=== PATIENT | female | born 1985 | race Caucasian/White ===

== ENCOUNTER 2017-12-07 12:50 | Emergency (ER) | payer OTHER, SELFPAY ==
[2017-12-07 12:51] VITALS: BP 132/89; PULSE 87; RESP 17; TEMP 36.5; O2SAT 98; BMI 32.0
--- NOTE | 2017-12-07 13:00 | CT_ITS ---
STUDY: CT BRAIN WITHOUT CONTRAST REASON FOR EXAM: Female, 32 years old. Status post fall. RADIATION DOSAGE (If Supplied By Facility): CTDIvol = ( 44.99 ) mGy, DLP = ( 728.62 ) mGycm TECHNIQUE: Transaxial CT imaging of the brain was performed without administration of intravenous contrast material. Individualized dose optimization techniques were used for this CT. COMPARISON: None. FINDINGS: Normal soft tissue structures. Normal calvarium. Normal size ventricles and extra-axial spaces for the patient's age. Normal white matter tracts of the cerebral hemispheres. Normal basal ganglia and thalami. Normal brainstem. Normal cerebellum. There is no intracranial hemorrhage. There are no findings of an acute ischemic infarction. Normal visualized paranasal sinuses. CT/Brain/Head without Contrast IMPRESSION: Normal unenhanced CT scan of the brain. Electronically Signed: Bertin Gotti MD at 13:46 EDT Tel , Service support ,
[2017-12-07] MEDS: HYDROcodone Bitartrate/Apap 5/325 Tablet PO (13:07)
[2017-12-07] MEDS: Ondansetron ODT 4 MG Tablet PO (13:07)
--- NOTE | 2017-12-07 13:09 | ED.VISSUMM ---
- ER Visit Summary Date of Service: 12/07/17 Chief Complaint: Head injury History of Present Illness: The patient is a 32 F is a healthy female with history of depression but on no other medications presents to the emergency department after head injury. Patient states that she was doing laundry yesterday. The floor was wet. She slipped and fell backwards. She struck her posterior head. She does not think that she lost consciousness but does have some amnesia to the event. Over the past 24 hours, her headache has been worsening. She states is worse when she leans forward. She has been nauseated without vomiting. There is no family history of hemophilia. She denies any visual change. She has not taken anything for the pain. Physical Examination: Vital signs reviewed General: Well-nourished, well-developed Head: Normocephalic, small contusion on the right posterior occiput without step-off or deformity Eyes: Pupils equal and reactive, extraocular muscles intact Neck, supple, no lymphadenopathy Heart: Regular rate and rhythm Respiratory: No distress, clear bilaterally Abdomen: Soft, nontender, nondistended, no peritoneal signs Back: Nontender Extremities: Nontender, no edema, no cords Skin: Normal color no rash Neuro: Alert and oriented, no focal or lateralizing deficits Test Results: [] Emergency Department Course and Treatment: The patient has had increasing headache with dizziness today. She was given oral antiemetics and analgesics with marked improvement of symptoms. I was concerned with the increasing headache and did obtain a head CT. This is unremarkable. There is no evidence of fracture or bleeding. The patient is resting comfortably. She has a steady gait. I do feel that her symptoms are more consistent with concussion. At this time, I do with the patient is safe for outpatient therapy. She will be discharged home. Treatment Plan: [] Disposition: Discharge Impression: 1. Concussion This note was generated with [employer] dictation software. It may contain incorrect words, spelling, and punctuation that were not noted in review of the chart prior to signing ED Disposition - Plan for ED Patient: Disposition: Home or Assisted Living Chief Complaint: Head Injury Instructions: ED Concussion Prescriptions: Ondansetron [Zofran Odt] 4 mg PO Q8H PRN PRN #10 tab PRN Reason: Nausea Naproxen [Naprosyn] 500 mg PO BID #20 tab Referrals: Maya Jo, DO [Primary Care Provider] -
[2017-12-07 14:19] VITALS: BP 127/91; PULSE 83; RESP 14; O2SAT 99
== END 2017-12-07 14:33 | disposition home or self-care (01) ==
PROVIDERS: Emergency Provider Emergency Medicine; Family Provider Internal Medicine; PCP Internal Medicine
DX: S06.0X0A Concussion without loss of consciousness, initial encounter (principal); S00.03XA Contusion of scalp, initial encounter; F32.9 Major depressive disorder, single episode, unspecified; R40.2410 Glasgow coma scale score 13-15, unspecified time; W01.0XXA Fall on same level from slipping, tripping and stumbling without subsequent striking against object, initial encounter; Y93.9 Activity, unspecified; Y92.9 Unspecified place or not applicable; Z79.899 Other long term (current) drug therapy
CPT/HCPCS: 70450; 99283

== ENCOUNTER 2019-08-14 18:21 | Emergency (ER) | payer OTHER, SELFPAY ==
[2019-08-14 18:22] VITALS: BP 105/79; PULSE 100; RESP 18; TEMP 36.3; O2SAT 99; BMI 29.0
--- NOTE | 2019-08-14 18:36 | ED.DCSUM_ITS ---
History of Present Illness Chief Complaint: Nausea/Vomiting Informant: Patient Onset: Days Context: Gradual Onset Timing: Intermittent Narrative: Patient is a 34-year-old female G4, P3 currently 9 weeks with last menstrual. June 15 presenting from her [employer] [employer] [facility] office for evaluation of dehydration vomiting. Patient states with prior pregnancies she has had hyperemesis gravidarum. She states for the past 2 weeks she has had worsening nausea but has been significantly worse for the past 5 days. She states she is throwing up multiple times a day now feels weak because she cannot keep anything down. She is also thrown up the Zofran prescribed by her [employer]. Patient denies any associated abdominal pain or vaginal bleeding. She denies any fever, cough, chills or vision changes. She denies any other complaints at this time. Past Medical History - Allergies and Home Meds Allergies/Adverse Reactions: Allergies No Known Allergies Allergy (Verified 12/07/17 12:53) Primary Care Physician: Aleksandra Caal CNM [Certified Nurse Email Producer] - Surgical History: no surgical history Smoking Status: Never smoker Review of Systems General: Denies: Chills, Fever, Sweats Eyes: Denies: Visual changes - bilaterally, Diplopia ENT: Denies: Rhinorrhea, Sore throat Cardiovascular: Denies: Chest pain, Palpitations Respiratory: Denies: Dyspnea, Cough, Dyspnea on exertion Gastrointestinal: Reports: Nausea, Vomiting. Denies: Abdominal pain, Diarrhea, Melena, Hematochezia Genitourinary: Denies: Dysuria, Hematuria, Frequency Musculoskeletal: Denies: Back pain, Extremity Pain Skin: Denies: Rash, Wounds Neurological: Denies: Headache, Weakness, Numbness Physical Exam Vital Signs/Narrative: Vital Signs Temp Pulse Resp BP Pulse Ox 08/14/19 18:22 97.3 F L 100 18 105/79 99 Inital Vital Signs reviewed: Yes General: Well nourished, Well developed, No Acute Distress Head: Normocephalic, Atraumatic Eyes: Perrl, EOMI ENT: Moist mucous membranes, No rhinorrhea Neck: Supple, Nontender Cardiovascular: Regular rate, Regular rhythm, No murmurs Respiratory: No distress, CTA bilaterally, Chest nontender Abdomen: Soft, Nontender, Nondistended, Normal bowel sounds. Negative for: Guarding Back: Nontender, Normal Inspection Extremities: Nontender, No edema Skin: Normal color, No rash Neurological: Alert, Oriented x3, Cranial nerves II-XII grossly intact, Normal Strength, Normal Sensation Psychological: Normal affect, Normal Mood Diagnostic/Tx/Re-eval Laboratory Data 08/14/19 08/14/19 08/14/19 18:40 18:40 18:40 WBC 9.9 RBC 4.99 Hgb 15.3 H Hct 44.1 MCV 88.4 MCH 30.7 MCHC 34.7 RDW Std Deviation 37.5 RDW Coeff of Xenia 11.8 Plt Count 226 MPV 8.9 Immature Gran % (Auto) 0.400 Neut % (Auto) 70.0 Lymph % (Auto) 18.9 L Kimble % (Auto) 7.2 Eos % (Auto) 3.2 Baso % (Auto) 0.3 Absolute Neuts (auto) 7.0 Absolute Lymphs (auto) 1.88 Nucleated RBC % 0 Sodium 139 Potassium 4.1 Chloride 106 Carbon Dioxide 27.0 Anion Gap 6 BUN 11 Creatinine 0.71 Estim Creat Clear Calc 94.59 Est GFR (MDRD) Af Amer 119 Est GFR (MDRD) Non-Af 99 BUN/Creatinine Ratio 15.5 Glucose 91 Calcium 9.4 Total Bilirubin 0.20 AST 16 ALT 24 Alkaline Phosphatase 77 Total Protein 7.7 Albumin 3.9 Globulin 3.8 Albumin/Globulin Ratio 1.0 Lipase 99 Serum , Qual POSITIVE H Urine Color Urine Clarity Urine pH Ur Specific [place] Urine Protein Urine Glucose (UA) Urine Ketones Urine Occult Blood Urine Nitrite Urine Bilirubin Urine Urobilinogen Ur Leukocyte Esterase Urine RBC Urine WBC Ur Squamous Epith Cells Amorphous Sediment Urine Bacteria Urine Mucus 08/14/19 19:10 WBC RBC Hgb Hct MCV MCH MCHC RDW Std Deviation RDW Coeff of X[place] Plt Count MPV Immature Gran % (Auto) Neut % (Auto) Lymph % (Auto) Kimble % (Auto) Eos % (Auto) Baso % (Auto) Absolute Neuts (auto) Absolute Lymphs (auto) Nucleated RBC % Sodium Potassium Chloride Carbon Dioxide Anion Gap BUN Creatinine Estim Creat Clear Calc Est GFR (MDRD) Af Amer Est GFR (MDRD) Non-Af BUN/Creatinine Ratio Glucose Calcium Total Bilirubin AST ALT Alkaline Phosphatase Total Protein Albumin Globulin Albumin/Globulin Ratio Lipase Serum , Qual Urine Color Yellow Urine Clarity Cloudy Urine pH 8.0 Ur Specific [place] 1.015 Urine Protein Negative Urine Glucose (UA) Normal Urine Ketones Negative Urine Occult Blood Negative Urine Nitrite Negative Urine Bilirubin Negative Urine Urobilinogen 1 H Ur Leukocyte Esterase Negative Urine RBC 0 SEEN Urine WBC 0 SEEN Ur Squamous Epith Cells 0 SEEN Amorphous Sediment 2+ Urine Bacteria 0 SEEN Urine Mucus 0 SEEN - Medical Decision Making Evaluated for nausea and vomiting associated with early . She has a history of significant morning sickness in her prior pregnancies. She does not appear clinically dehydrated and has normal vital signs. She is given IV fluids as well as IV Zofran initially. She does not have significant improvement with Zofran. She is then given IV Reglan. On reevaluation patient is now feeling better. She is able to eat some crackers in the ER. She is not having any associated tapan pain or vaginal bleeding I do not think ultrasound or further evaluation of the is indicated. Patient is instructed to follow-up with the [facility] at her [employer] office on Saturday. Patient discharged home with a prescription for Reglan. Patient is counseled on signs and symptoms requiring return to the emergency room. Patient verbalizes agreement and understand this plan. Patient discharged home in stable and improved condition. ED Disposition - Plan for ED Patient: Disposition: Home or Assisted Living Diagnosis: Vomiting during Instructions: Hyperemesis Gravidarum (Severe Morning Sickness) Prescriptions: Metoclopramide [Reglan] 10 mg PO 4X/DAY PRN #20 tab PRN Reason: Vomiting Prescription Printed Referrals: Aleksandra Caal CNM [Certified Nurse Email Producer] - Additional Instructions: Follow-up with galilto Crowell on Saturday. Call to make sure you are added onto the schedule. Return the emergency room with any worsening symptoms. Drink plenty of fluids. He might have to limit your diet to bland foods.
[2019-08-14 18:51] LABS: Absolute Lymphocyte Count 1.88 X10^3/uL (0.83-4.51); Basophil# 0.03 X10^3/uL; Basophil% 0.3 % (0-1); Eosinophil# 0.32 X10^3/uL; Eosinophils% 3.2 % (0-5); Hematocrit 44.1 % (37-47); Hemoglobin 15.3 g/dL (12.0-15.0); Lymphocyte # 1.88 X10^3/ul (4.0); Lymphocyte % 18.9 % (19-41); Mean Corp Hgb Conc 34.7 g/dL (32-36); Mean Corpuscular Hgb 30.7 pg (27.0-32.0); Mean Corpuscular Volume 88.4 fL (81-99); Mean Platelet Vol. 8.9 fl (6.2-12.0); Monocyte# 0.71 X10^3/uL; Monocyte% 7.2 % (0-10); NRBC Flagged by Analyzer 0 % (0-5); Neutrophil # 6.95 X10^3/uL (2.7-7.7); Platelet Count 226 K/mm3 (150-450); RBC Distribution Width CV 11.8 % (11.6-14.6); RBC Distribution Width SD 37.5 fl (35.1-43.9); Red Blood Count 4.99 M/mm3 (4.2-5.4); White Blood Count 9.9 K/mm3 (4.4-11.0)
[2019-08-14] MEDS: Ondansetron 4 MG/2 ML Vial IV (18:59)
[2019-08-14] MEDS: 0.9% Normal Saline 1,000 ML 1000 ML IV (18:59)
[2019-08-14 19:05] LABS: Internal QC Validated? YES +Cl - CLEAR BKGD; Pregnancy, Serum, hCG Quali. POSITIVE Negative
[2019-08-14 19:12] LABS: Bacteria 0 SEEN /hpf (None Seen); Mucous, Urine 0 SEEN /hpf (<or=2+); Red Blood Cells-Urine 0 SEEN /hpf (0-5); Squamous Epithelial Cells - UA 0 SEEN /hpf (5-10); White Blood Cells 0 SEEN /hpf (0-5)
[2019-08-14 19:14] LABS: Color, Urine Yellow (Yellow); Glucose, Dipstick Normal (Normal); Ketone-Dipstick Negative (Negative); Leukocyte Esterase-Dipstick Negative /ul (Negative); Nitrite-Dipstick Negative (Negative); Occult Blood-Urine Negative /ul (Negative); Protein-Dipstick Negative (Negative); Specific Gravity, Urine 1.015 (1.002-1.030); Urine Bilirubin Dipstick Negative (Negative); Urine Clarity Cloudy (Clear); Urine Urobilinogen 1 mg/dl (Normal)
[2019-08-14 19:14] LABS: AST(SGOT) 16 U/L (15-37); Alanine Aminotransfer ALT/SGPT 24 U/L (13-56); Albumin, Serum 3.9 g/dL (3.2-5.0); Alkaline Phosphatase 77 U/L (45-117); Anion Gap 6 (5-15); BUN 11 mg/dL (7-18); BUN/Creat Ratio 15.5 RATIO (10-20); Calcium,Total 9.4 mg/dL (8.5-10.1); Chloride 106 mmol/L (98-107); Creatinine, Serum 0.71 mg/dL (0.55-1.02); EST Glomerular Filtration Rate 99 mL/min (>60); Est Glom Filt Rate - Afr Amer 119 mL/min (>60); Estimated Creatinine Clearance 94.59 ml/min; Globulin 3.8 g/dL (2.2-4.2); Glucose 91 mg/dL (74-106); Lipase 99 U/L (73-393); Potassium 4.1 mmol/L (3.5-5.1); Protein, Total 7.7 g/dL (6.4-8.2); Sodium Level 139 mmol/L (136-145)
[2019-08-14 19:19] LABS: Amorphous Sediment 2+
[2019-08-14] MEDS: Metoclopramide 10 MG/2 ML Vial 5 MG IV (20:21)
[2019-08-14] MEDS: 0.9% Normal Saline 1,000 ML 999 ML IV (20:21)
[2019-08-14 23:04] VITALS: PULSE 81; RESP 14; O2SAT 98
== END 2019-08-14 23:04 | disposition home or self-care (01) ==
PROVIDERS: Emergency Provider Emergency Medicine; Family Provider Internal Medicine; PCP Internal Medicine
DX: O21.0 Mild hyperemesis gravidarum (principal); Z3A.09 9 weeks gestation of pregnancy
CPT/HCPCS: 80053; 81001; 83690; 84703; 85025; 96361; 96374; 96375; 99284; J7030; A4216; J2405

== ENCOUNTER → 2019-08-25 10:00 | Outpatient (CLI) | payer SELFPAY ==
[2019-08-14 18:22] VITALS: BMI 29.0
[2019-08-26 12:46] LABS: Chlamydia Trachomatis by PCR Negative (Negative); Neisserai gonorrhoeae by PCR Negative (Negative); Probe Check PASS; Sample Adequacy Control PASS; Specimen Processing Control PASS
[2019-08-28 15:16] LABS: HPV Reflexed? NOT INDICATED
== END ==
PROVIDERS: Visit Provider Obstetrics & Gynecology
DX: Z12.4 Encounter for screening for malignant neoplasm of cervix (principal); Z11.3 Encounter for screening for infections with a predominantly sexual mode of transmission
CPT/HCPCS: 87491; 87591; 88175; G0145

== ENCOUNTER → 2020-02-23 | Outpatient (CLI) | payer OTHER, SELFPAY | END | disposition home or self-care (01) | LOC: LABSPEC 02-24 08:56 | PROVIDERS: Visit Provider Obstetrics & Gynecology | DX: Z36.85 Encounter for antenatal screening for Streptococcus B (principal) | CPT/HCPCS: 87081 ==

== ENCOUNTER → 2020-03-16 18:11 | Outpatient (CLI) | payer SELFPAY, OTHER | PROVIDERS: PCP Family Medicine; Visit Provider Obstetrics & Gynecology | DX: Z11.59 Encounter for screening for other viral diseases (principal) | CPT/HCPCS: 87635; U0003 ==

== ENCOUNTER 2020-03-17 23:45 | Outpatient (CLI) | payer SELFPAY ==
[2020-03-17 23:56] VITALS: BMI 33.5
[2020-03-18] VITALS: BP 120/79; PULSE 76; TEMP 36.7; O2SAT 96
[2020-03-18 00:36] VITALS: BP 116/76; PULSE 78; TEMP 36.4
[2020-03-18 01:24] VITALS: BP 111/70; PULSE 67; TEMP 36.2; O2SAT 99
[2020-03-18 02:45] VITALS: TEMP 36.6; O2SAT 97
[2020-03-18 02:46] VITALS: BP 128/77; PULSE 68
[2020-03-18 03:40] VITALS: BP 117/76; PULSE 71; TEMP 36.3; O2SAT 96
--- NOTE | 2020-03-18 10:52 | OB.TRI.NOTE ---
- Problem List (1) 39 weeks gestation of Status: Acute History of Present Illness Reason For Visit: R/O LABOR Allergies No Known Allergies Allergy (Verified 03/18/20 00:08) Physical Exam Vitals: Vital Signs Temp Pulse BP Pulse Ox 97.4 F L 71 117/76 96 03/18/20 03:40 03/18/20 03:40 03/18/20 03:40 03/18/20 03:40
--- NOTE | 2020-03-18 11:46 | OB.TRI.HP_ITS ---
- Problem List (1) 39 weeks gestation of Status: Acute History of Present Illness Date of Service: 03/18/20 Was patient seen by the physician?: No Reason For Visit: R/O LABOR Date of Service: 03/18/20 Final POLLY: 03/20/20 Final POLLY Source: US <20 weeks Gestational age: 39 Weeks and 5 Days History of Present Illness: States regular contractions started this evening around 2100. Allergies No Known Allergies Allergy (Verified 03/18/20 00:08) Review of Systems Constitutional: Denies: Chills, Fever, Weight Change HEENT: Denies: Head Aches, Sinus Congestion, Sinus Drainage Cardiovascular: Denies: Chest Pain, Palpitations Respiratory: Denies: Cough, Shortness of breath at rest, Sputum production Gastrointestinal: Denies: Abdominal Pain, Nausea, Vomiting Genitourinary: Denies: Dysuria Musculoskeletal: Denies: Joint Pain, Joint Tenderness Skin: Denies: Rash, Wounds Neurological: Denies: Numbness, Tingling, Focal weakness Psychiatric: Denies: Anxiety, Depression, Homicidal Ideations, Suicidal Ideations Hematologic/ Lymphatic: Denies: Easy Bruising, Easy Bleeding Physical Exam Vitals: Vital Signs Temp Pulse BP Pulse Ox 97.4 F L 71 117/76 96 03/18/20 03:40 03/18/20 03:40 03/18/20 03:40 03/18/20 03:40 General: Alert, Oriented x3, No apparent distress HEENT: Atraumatic, Normocephalic. 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 Negative for: Vulvar lesions Estimated gestational size: Appropriate for gestational size Presentation: Cephalic Cervix Dilation (cm): 2.5 Station: -3 Effacement (%): 50 NST - FHR Rate Baby A Baseline: 150 Variability:: Moderate Accelerations:: 15 x 15 Decelerations:: None NST Reactive:: Yes FHR Category:: Category I Uterine Activity:: 10-15m Impression/Plan A/P: at 39 weeks here to rule out labor On arrival to unit SVE 2.5/50/-3 Observed for 4 hours NST Category I UC Q10-15m SVE after 4 hours unchanged at 2.5/50/-3 RN reviewed NST with Dr. Hinkle and anita to discharge home
== END 2020-03-18 04:25 | disposition home or self-care (01) ==
LOC: WPOUT 23:49 → WP 23:49
PROVIDERS: PCP Family Medicine; Referring Provider Obstetrics & Gynecology; Visit Provider Obstetrics & Gynecology
DX: O62.9 Abnormality of forces of labor, unspecified (principal); Z3A.39 39 weeks gestation of pregnancy
CPT/HCPCS: 59025; 59050; 99218; G0378

== ENCOUNTER 2020-03-19 04:23 | Inpatient (IN) | payer SELFPAY, OTHER ==
[2020-03-19] VITALS (44 sets, daily range): BP systolic 79–126; BP diastolic 42–83; PULSE 51–153; RESP 14; TEMP 35.7–36.7; O2SAT 88–99; BMI 33.5
[2020-03-19] MEDS: Lactated Ringers 500 ML 999 ML IV ×3 (04:50→07:28)
[2020-03-19 04:51] LABS: Hemoglobin 12.3 g/dL (12.0-15.0); Mean Corp Hgb Conc 33.2 g/dL (32-36); Mean Corpuscular Hgb 29.1 pg (27.0-32.0); Mean Corpuscular Volume 87.5 fL (81-99); Mean Platelet Vol. 8.9 fl (6.2-12.0); Platelet Count 166 K/mm3 (150-450); RBC Distribution Width CV 13.2 % (11.6-14.6); RBC Distribution Width SD 41.1 fl (35.1-43.9); Red Blood Count 4.23 M/mm3 (4.2-5.4); White Blood Count 10.9 K/mm3 (4.4-11.0)
[2020-03-19] MEDS: Lactated Ringers 1,000 ML 50 ML IV (05:00)
[2020-03-19 05:07] LABS: Absolute Lymphocyte Count 1.13 X10^3/uL (0.83-4.51); Absolute Neutrophil Count 8.5 X10^3/uL (2.0-7.7); Basophil# 0.02 X10^3/uL; Basophil% 0.2 % (0-1); Eosinophil# 0.13 X10^3/uL; Eosinophils% 1.2 % (0-5); Lymphocyte # 1.13 X10^3/ul (4.0); Lymphocyte % 10.7 % (19-41); Monocyte# 0.71 X10^3/uL; Monocyte% 6.7 % (0-10); NRBC Flagged by Analyzer 0 % (0-5); Neutrophil # 8.48 X10^3/uL (2.7-7.7); Neutrophil % 80.6 % (47-70)
[2020-03-19] MEDS: fentaNYL-bupivacaine (epidural) 100 ML BAG EPIDURAL ×2 (05:16→10:07)
[2020-03-19] MEDS: Ondansetron 4 MG/2 ML Vial IV (05:50)
--- NOTE | 2020-03-19 06:41 | PCM.HP.OB ---
- Problem List (1) 39 weeks gestation of Status: Acute History Date of Admission: 03/19/20 Final POLLY: 03/20/20 Final POLLY Source: US <20 weeks Gestational age: 39 Weeks and 6 Days History of this : This is a 34 year-old, G [4], P [3], at 39 weeks gestational age. Allergies No Known Allergies Allergy (Verified 03/19/20 06:13) Home Medications: Home Medications Fluoxetine HCl 40 mg PO DAILY 08/14/19 Smoking Status: Never smoker Alcohol: None Substance Use Type: Sleep Aides Number of Fetus(es): 1 NST - FHR Rate Baby A Baseline: 140 Variability:: Moderate Accelerations:: 15 x 15 Decelerations:: None NST Reactive:: Yes FHR Category:: Category I Uterine Activity:: Q5m History Past Pregnancies: PRIOR DELIVERY HISTORY DEL DATE GEST LAB WT LB WT OZ TYPE ANES LABOR TX Jul 25 41 20 8 5 Vag Epidural No 17 Aug 29 40 8 7 7 Vag Epidural No 30 Jan 31 40 8 8 5 Vag Epidural No Labs: Mom's Labs & Results 03/19/20 03/19/20 04:49 04:49 WBC 10.9 RBC 4.23 Hgb 12.3 Hct 37.0 MCV 87.5 MCH 29.1 MCHC 33.2 RDW Std Deviation 41.1 RDW Coeff of Xenia 13.2 Plt Count 166 MPV 8.9 Immature Gran % (Auto) 0.600 Neut % (Auto) 80.6 H Lymph % (Auto) 10.7 L [place] % (Auto) 6.7 Eos % (Auto) 1.2 Baso % (Auto) 0.2 Absolute Neuts (auto) 8.5 H Absolute Lymphs (auto) 1.13 Nucleated RBC % 0 Blood Type A NEGATIVE Antibody Screen NEGATIVE Course Did the patient receive Yes care? Labs Blood Type: A RH: NEGATIVE RPR/VDRL/Syphilis Nonreactive Rubella status Immune HbSAg Negative Date Done: 09/01/19 Chlamydia Negative Gonorrhea Negative HIV/AIDS Non-Reactive Group B Strep: Negative Current Obstetrical History Gestational Diabetes No Incompetent Cervix No Infertility No IUGR No Macrosomia No Hypertension/Pre-eclampsia No Placenta Previa/Abruption Yes: resolved at 32 wks PTL/PROM No Uterine anomaly No Oligohydramnios No Polyhydramnios No Multiple gestation No Past Medical History Asthma No Diabetes No Hypertension No Heart disease No Mitral valve prolapse No Neurologic/Seizure disorder/ No Migraines Kidney disease No Liver disease No Varicosities No Clotting disorders/Hx of DVT No Thyroid Dysfunction No Other medical diseases No Psychiatric disorders Yes: anxiety, depression Major trauma No Abnormal PAP smear No Sleep apnea No Mammogram in the last 2 years No Social History Marital Status: Alleged father Temo Hx Smoking No Smoking Status Never smoker Substance Use Type Sleep Aides How long have you used unisom during substances (years)? What date/time did you last 03/16/20 use any of the above? Have you had any previous no inpatient or outpatient treatment Expected Infant Delivery Method: Spontaneous Vaginal Number of Visits: 12 Review of Systems Constitutional: Denies: Chills, Fever, Weight Change HEENT: Denies: Head Aches, Sinus Congestion, Sinus Drainage Cardiovascular: Denies: Chest Pain, Palpitations Respiratory: Denies: Cough, Shortness of breath at rest, Sputum production Gastrointestinal: Denies: Abdominal Pain, Nausea, Vomiting Genitourinary: Denies: Dysuria Musculoskeletal: Denies: Joint Pain, Joint Tenderness Skin: Denies: Rash, Wounds Neurological: Denies: Numbness, Tingling, Focal weakness Psychiatric: Denies: Anxiety, Depression, Homicidal Ideations, Suicidal Ideations Hematologic/ Lymphatic: Denies: Easy Bruising, Easy Bleeding Physical Exam Vitals: Vital Signs Temp Pulse BP Pulse Ox 97.3 F L 72 103/66 97 03/19/20 11:00 03/19/20 11:17 03/19/20 11:01 03/19/20 11:17 General: Alert, Oriented x3, No apparent distress HEENT: Atraumatic, Normocephalic. 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 Negative for: Vulvar lesions Estimated gestational size: Appropriate for gestational size Presentation: Cephalic Cervix Dilation (cm): 5 Station: -2 Effacement (%): 75 Assessment/Plan All Active Problems 39 weeks gestation of (Acute) A/P: This is a 34 year-old, G [4], P [3], at 39 weeks gestational age. SVE /-2 with bulging bag of amniotic fluid UC Q5m NST Category I Plans epidural for pain management Admit in active labor
--- NOTE | 2020-03-19 10:40 | PN.OBGYN_ITS ---
Subjective: Feeling no pain with epidural. Okay with having water broke. Objective: VSS. UC Q1.5-3m. Epidural in place. SVE /-1 with bulging bag of amniotic fluid - Physical Exam Vitals/I&O's: Vital Signs Temp Pulse BP Pulse Ox 97.3 F L 72 103/66 97 03/19/20 11:00 03/19/20 11:17 03/19/20 11:01 03/19/20 11:17 Weight: 85.729 kg Body Mass Index (BMI) 33.5 Intake and Output for Last 24 Hours 03/17/20 03/18/20 03/19/20 23:59 23:59 23:59 Intake Total 2737.49 / 2737.49 Output Total 425 / 425 Balance 2312.49 / 2312.49 General: Alert, Oriented x3, Cooperative HEENT: Atraumatic, PERRLA, EOMI, Normocephalic Neck: Supple, No JVD, Negative Carotid Bruits Lungs: Clear to auscultation, Normal air movement Cardiovascular: Regular rate, No murmurs Abdomen: Bowel Sounds Present, Soft, Non Tender Extremities: No edema, Capillary Refill Less than 3 Seconds Skin: No rashes, No breakdown Musculoskeletal: No Tenderness to Palpation of Joints or Extremities Neurological: Cranial nerves II-XII grossly intact Psych/Mental Status: Normal Affect, Appropriate Laboratory Results 03/19/20 04:49: WBC 10.9, RBC 4.23, Hgb 12.3, Hct 37.0, MCV 87.5, MCH 29.1, MCHC 33.2, RDW Std Deviation 41.1, RDW Coeff of Xenia 13.2, Plt Count 166, MPV 8.9, Immature Gran % (Auto) 0.600, Neut % (Auto) 80.6 H, Lymph % (Auto) 10.7 L, [place] % (Auto) 6.7, Eos % (Auto) 1.2, Baso % (Auto) 0.2, Absolute Neuts (auto) 8.5 H, Absolute Lymphs (auto) 1.13, Nucleated RBC % 0 03/19/20 04:49: Blood Type A NEGATIVE, Antibody Screen NEGATIVE Current Medications Acetaminophen (Tylenol) 325 - 650 mg PO Q4H PRN PRN PRN Reason: Pain Score 1-3/10 Al Hydroxide/Mg Hydroxide (Mylanta Ii) 15 - 30 ml PO Q4H PRN PRN PRN Reason: INDIGESTION Citric Acid/Sodium Citrate (Bicitra) 30 ml PO X1 PRN PRN Reason: Section Ephedrine Sulfate () 10 mg IV Q10M PRN PRN Reason: hypotension Ephedrine Sulfate () 10 mg IM Q30M PRN PRN Reason: hypotension Fentanyl Citrate (Sublimaze (100mcg Ampule)) 25 - 50 mcg IV Q2H PRN PRN PRN Reason: Pain Score 4-10/10 Fentanyl/Bupivacaine/Sodium Chlor () 0 ml EPIDURAL UD JOSE F; Protocol Last Admin: 03/19/20 10:07 Dose: 100 ml Documented by: Lactated Ringer's () 500 mls @ 999 mls/hr IV .Q31M PRN PRN Reason: Epidural Last Infusion: 03/19/20 05:50 Dose: Infused Documented by: Lactated Ringer's () 500 mls @ 999 mls/hr IV .Q31M PRN PRN Reason: Corrective Measures Last Infusion: 03/19/20 08:00 Dose: Infused Documented by: Lactated Ringer's () 1,000 mls @ 50 mls/hr IV .Q20H JOSE F Last Admin: 03/19/20 11:04 Dose: 200 mls/hr Documented by: Naloxone HCl 4 mg/ Dextrose 504 mls @ 0 mls/hr IV .Q0M PRN; Protocol PRN Reason: To maintain Resp. rate >10 Nalbuphine HCl (Nubain) 5 mg IV Q3H PRN PRN PRN Reason: ITCHING Naloxone HCl (Narcan) 0.02 mg IV Q1M PRN PRN Reason: RR< 10 AND PT UNRESPONSIVE Ondansetron HCl (Zofran) 4 mg IV Q4H PRN PRN PRN Reason: NAUSEA Last Admin: 03/19/20 05:50 Dose: 4 mg Documented by: Prochlorperazine Edisylate (Compazine Iv) 10 mg IV Q6H PRN PRN PRN Reason: NAUSEA Sodium Chloride () 10 - 40 ml IV X1 PRN PRN Reason: SALINE FLUSH Medical Necessity - Tobacco Use Smoking Status: Never smoker Assessment/Plan All Active Problems 39 weeks gestation of (Acute) A/P: here in active labor SVE /-1 AROM with moderate meconium stained fluid Epidural in place for pain management, working well Expect Dr. Hinkle, attending MD updated on POC
[2020-03-19] MEDS: Lactated Ringers 1,000 ML 200 ML IV (11:04)
[2020-03-19] MEDS: Oxytocin 30 units/NS 500 ml 30 UNITS/500 ML IV.SOLN 334 UNITS IV (13:35)
--- NOTE | 2020-03-19 13:51 | PCM.OPRPT ---
Vaginal Delivery Maternal Presentation: Active Labor Amniotic Membrane Rupture Type: Artificial Amniotic Fluid Description: Thick meconium Final POLLY: 03/20/20 Final POLLY Source: US <20 weeks Gestational age: 39 Weeks and 6 Days doctor who attended delivery (if requested by OB): Abby Mcelroy - Thick Mec Fluid Date of Procedure: 03/19/20 Pre-Operative Diagnosis: IUP Post-Operative Diagnosis: IUP Surgery/ Procedure Performed: Spontaneous Vaginal Delivery Type of Anesthesia: Epidural Description of Procedure: Spontaneous vaginal delivery of a viable female with Apgars of 7/8 from an occiput anterior presentation with thick meconium stained fluid and normal three-vessel meconium stained placenta. No episiotomy; first-degree midline laceration repaired with 3-0 Rapide suture under epidural. Sponges okay. Delivery physician: Anthony Hinkle MD. Placental Delivery Description: Spontaneous Placenta Disposition: [facility] Cord Vessel Description: 3 Vessels Cord Entanglement: None Estimated Blood Loss: 250 cc A gender: Female (1 minute): 8 (5 minute): 9 Episiotomy Description: None Laceration: Midline, 1st degree Medications given after delivery: IV Pitocin Complications: None
--- NOTE | 2020-03-19 13:56 | DCINST_ITS ---
<Anthony Hinkle - Last Filed: 03/19/20 13:56> Discharge Diet: No Restrictions Discharge Activity: May Shower, May Take a Tub Bath May resume sexual activity in: 4-6 weeks Additional Activity Instructions:: Nothing in the vagina for 4-6 weeks. You may return to work/school in 6 weeks. Call your doctor if you observe: Fever of 101 or Higher, Inability to have a bowel movement, Using more than one pad per hour Additional Instructions: If you experience any of the following, contact your healthcare provider. * Bleeding that soaks a pad every hour for 2 hours * Fever 100.4 or higher * Unrelieved incision or abdominal pain * Swelling, redness, discharge or bleeding from your incision or episiotomy site * Your incision begins to separate * Problems urinating (including inability to urinate or burning while urinating). * Visual changes * Severe headache * Flu-like symptoms * Pain or redness in one of both of your breasts * Pain, warmth, tenderness or swelling in your legs, especially the calf area * Frequent nausea and vomiting * Symptoms of depression or anxiety If you experience any of the following, call 911 or go to the nearest Emergency Room. * Chest pain * Problems breathing * Seizure activity * Partial or complete paralysis of a body part, slurred speech, weakness or drooping of the face, or a sudden inability to walk or hold your balance Allergies/Adverse Reactions: Allergies No Known Allergies Allergy (Verified 03/19/20 06:13) Medications to take at Discharge Fluoxetine HCl 40 mg PO DAILY 08/14/19 Please Follow Up With: Anthony Hinkle MD - [phone] When: Call to make an appointment with your doctor in 6 weeks. Primary Care Physician: Jaylan Hernadez MD [Primary Care Provider] - Test Results: Test results from this visit will be discussed in further detail at your follow-up appointment, if applicable. <Jeannine Sofia - Last Filed: 03/21/20 08:09> Additional Instructions: If you experience any of the following, contact your healthcare provider. * Bleeding that soaks a pad every hour for 2 hours * Fever 100.4 or higher * Unrelieved incision or abdominal pain * Swelling, redness, discharge or bleeding from your incision or episiotomy site * Your incision begins to separate * Problems urinating (including inability to urinate or burning while urinating). * Visual changes * Severe headache * Flu-like symptoms * Pain or redness in one of both of your breasts * Pain, warmth, tenderness or swelling in your legs, especially the calf area * Frequent nausea and vomiting * Symptoms of depression or anxiety If you experience any of the following, call 911 or go to the nearest Emergency Room. * Chest pain * Problems breathing * Seizure activity * Partial or complete paralysis of a body part, slurred speech, weakness or drooping of the face, or a sudden inability to walk or hold your balance Test Results: Test results from this visit will be discussed in further detail at your follow- up appointment, if applicable.
[2020-03-19] MEDS: Acetaminophen 500 MG Tablet 1000 MG PO (18:07)
--- NOTE | 2020-03-19 20:30 | CASEMGMT ---
Social Work Brief Assessment - Labor and Delivery Unit Refer documentation below for further details. Date of Referral/Notification: 03/19/2020 Time of Referral: 16:35 Referred By: Nursing Reason for Referral: History of depression and anxiety. MOB treated with medication Date of Intervention: 03/19/2020 Time of Intervention: 20:25 Informant: Medical record and mother of baby (MOB) Assessment: Met with MOB and FOB in room. Upon entering room, MOB sitting up in bed holding baby. Introduced role and reason for referral. MOB reports feeling tired as she just delivered baby this afternoon. MOB discussed history of mental health and states followed with counseling in the past. MOB states depression and anxiety is well managed with medication. MOB denies any needs for referrals. MOB states good support from family. Discussed signs/symptoms of Post- Depression and provided educational packet. MOB and FOB deny any questions or concerns. Plan: MOB reports wishes to stay additional day. Anticipate discharge home, Saturday. Resources provided. No further needs requested or indicated. -Rosangela Epps, ACADEMIC ASSISTANT, SPINNER [employer]INUOUS
[2020-03-20] VITALS (9 sets, daily range): BP systolic 109–117; BP diastolic 59–77; PULSE 72–87; RESP 16–18; TEMP 36.4–37.1
[2020-03-20] MEDS: Acetaminophen 500 MG Tablet 1000 MG PO ×2 (06:22→17:26)
[2020-03-20] MEDS: Ibuprofen 600 MG Tablet PO (12:31)
[2020-03-20] MEDS: Senna/Docusate Sodium 1 Tablet PO (12:31)
[2020-03-20] MEDS: FLUoxetine 20 MG Capsule 40 MG PO (12:31)
--- NOTE | 2020-03-20 12:37 | PCM.PN.OB ---
Subjective: Patient without complaints. Bottlefeeding. Wants to wait until tomorrow to go home. - Physical Exam Vitals/I&O's: Vital Signs Temp Pulse Resp BP Pulse Ox 98.3 F 87 18 117/77 97 03/20/20 09:05 03/20/20 09:05 03/20/20 09:05 03/20/20 09:05 03/19/20 15:28 Oxygen Delivery Method Room Air Weight: 189 lb Body Mass Index (BMI) 33.5 Intake and Output for Last 24 Hours 03/18/20 03/19/20 03/20/20 23:59 23:59 23:59 Intake Total 3740.82 / 3740.82 Output Total 1525 / 1525 Balance 2215.82 / 2215.82 Current Medications Acetaminophen (Tylenol) 1,000 mg PO Q8H PRN PRN PRN Reason: Pain Score 1-3/10 Last Admin: 03/20/20 06:22 Dose: 1,000 mg Documented by: Bisacodyl (Dulcolax) 10 mg RECTAL UD PRN PRN Reason: If no BM Dibucaine (Dibucaine) 1 applic TOPICAL TID PRN PRN; Protocol PRN Reason: Discomfort Fluoxetine HCl (Prozac) 40 mg PO DAILY JOSE F Last Admin: 03/20/20 12:31 Dose: 40 mg Documented by: Hydrocortisone (Hytone) 1 applic TOPICAL TID PRN PRN; Protocol PRN Reason: Discomfort Ibuprofen (Motrin) 600 mg PO Q6H PRN PRN PRN Reason: Pain Score 1-3/10 Last Admin: 03/20/20 12:31 Dose: 600 mg Documented by: Methylergonovine Maleate (Methergine) 0.2 mg IM X1 PRN PRN Reason: Excess bleeding/uterine atony Ondansetron HCl (Zofran) 4 mg IV Q4H PRN PRN PRN Reason: Nausea Oxycodone HCl (Oxyir) 5 - 10 mg PO Q4H PRN PRN PRN Reason: Pain Score 4-10/10 Senna/Docusate Sodium (Senokot-S, Cornelia-Colace) 1 - 2 tablet PO DAILY PRN PRN PRN Reason: Constipation Last Admin: 03/20/20 12:31 Dose: 2 tablet Documented by: Simethicone (Mylicon) 80 mg PO PCHS PRN PRN Reason: Indigestion/Stomach pain Sodium Chloride () 5 - 15 ml IV UD PRN PRN Reason: SALINE FLUSH Zolpidem Tartrate (Ambien (Generic)) 5 mg PO QHS PRN PRN PRN Reason: Insomnia Medical Necessity - Tobacco Use Smoking Status: Never smoker Assessment/Plan All Active Problems 39 weeks gestation of (Acute) Doing well day #1 status post routine spontaneous vaginal delivery. Continuing present care.
[2020-03-21 01:33] VITALS: BP 117/75; PULSE 71
[2020-03-21 01:34] VITALS: BP 117/75; PULSE 71; RESP 14; TEMP 36.7
[2020-03-21] MEDS: Ibuprofen 600 MG Tablet PO (01:36)
[2020-03-21 07:33] VITALS: BP 111/70; PULSE 77; RESP 16; TEMP 36.6
--- NOTE | 2020-03-21 08:09 | PCM.PN.OB ---
Subjective: Feeling well. Denies pain or heavy bleeding. Ambulating in the room, tolerating a regular diet, urinating well, and passing flatus. Bottle feeding and would like to discharge home today. Objective: VSS. Fundus is firm, midline, u/2. Lochia rubra moderate. - Physical Exam Vitals/I&O's: Vital Signs Temp Pulse Resp BP Pulse Ox 97.8 F 77 16 111/70 97 03/21/20 07:33 03/21/20 07:33 03/21/20 07:33 03/21/20 07:33 03/19/20 15:28 Oxygen Delivery Method Room Air Weight: 85.729 kg Body Mass Index (BMI) 33.5 Intake and Output for Last 24 Hours 03/19/20 03/20/20 03/21/20 23:59 23:59 23:59 Intake Total 3740.82 / 3740.82 Output Total 1525 / 1525 Balance 2215.82 / 2215.82 General: Alert, Oriented x3, Cooperative HEENT: Atraumatic, PERRLA, EOMI, Normocephalic Neck: Supple, No JVD, Negative Carotid Bruits Lungs: Clear to auscultation, Normal air movement Cardiovascular: Regular rate, No murmurs Abdomen: Bowel Sounds Present, Soft, Non Tender Extremities: No edema, Capillary Refill Less than 3 Seconds Skin: No rashes, No breakdown Musculoskeletal: No Tenderness to Palpation of Joints or Extremities Neurological: Cranial nerves II-XII grossly intact Psych/Mental Status: Normal Affect, Appropriate Current Medications Acetaminophen (Tylenol) 1,000 mg PO Q8H PRN PRN PRN Reason: Pain Score 1-3/10 Last Admin: 03/20/20 17:26 Dose: 1,000 mg Documented by: Bisacodyl (Dulcolax) 10 mg RECTAL UD PRN PRN Reason: If no BM Dibucaine (Dibucaine) 1 applic TOPICAL TID PRN PRN; Protocol PRN Reason: Discomfort Fluoxetine HCl (Prozac) 40 mg PO DAILY JOSE F Last Admin: 03/20/20 12:31 Dose: 40 mg Documented by: Hydrocortisone (Hytone) 1 applic TOPICAL TID PRN PRN; Protocol PRN Reason: Discomfort Ibuprofen (Motrin) 600 mg PO Q6H PRN PRN PRN Reason: Pain Score 1-3/10 Last Admin: 03/21/20 01:36 Dose: 600 mg Documented by: Methylergonovine Maleate (Methergine) 0.2 mg IM X1 PRN PRN Reason: Excess bleeding/uterine atony Ondansetron HCl (Zofran) 4 mg IV Q4H PRN PRN PRN Reason: Nausea Oxycodone HCl (Oxyir) 5 - 10 mg PO Q4H PRN PRN PRN Reason: Pain Score 4-10/10 Senna/Docusate Sodium (Senokot-S, Cornelia-Colace) 1 - 2 tablet PO DAILY PRN PRN PRN Reason: Constipation Last Admin: 03/20/20 12:31 Dose: 2 tablet Documented by: Simethicone (Mylicon) 80 mg PO PCHS PRN PRN Reason: Indigestion/Stomach pain Sodium Chloride () 5 - 15 ml IV UD PRN PRN Reason: SALINE FLUSH Zolpidem Tartrate (Ambien (Generic)) 5 mg PO QHS PRN PRN PRN Reason: Insomnia Medical Necessity - Tobacco Use Smoking Status: Never smoker Assessment/Plan All Active Problems 39 weeks gestation of (Acute) A/P: S/P Day #2 Bottle feeding female Normal involution and lochia Dyad stable Educated on normal lochia, reducing milk when it comes in and s/s of PPD To discharge home today with 6 week routine follow up with Dr. Hinkle
[2020-03-22 03:28] VITALS: BP 146/92; PULSE 80; TEMP 36.8
[2020-03-22 03:45] VITALS: BP 176/89; PULSE 86
== END 2020-03-21 09:15 | disposition home or self-care (01) | DRG 807 ==
LOC: WPOUT 04:26 → WP 04:26
PROVIDERS: Admitting Provider Obstetrics & Gynecology; PCP Family Medicine; Visit Provider Obstetrics & Gynecology
DX: O77.0 Labor and delivery complicated by meconium in amniotic fluid (principal); Z37.0 Single live birth; O70.0 First degree perineal laceration during delivery; Z3A.39 39 weeks gestation of pregnancy
CPT/HCPCS: 59025; 59050; 85025; 86850; 86900; 86901; 99218; J7120; G0378; J2405

== ENCOUNTER → 2021-05-17 | Outpatient (CLI) | payer OTHER, SELFPAY | END | disposition home or self-care (01) | LOC: LABSPEC 16:50 | PROVIDERS: Referring Provider Physician Assistant; Visit Provider Physician Assistant | DX: U07.1 COVID-19 (principal) | CPT/HCPCS: 87635; U0005; U0003 ==

== ENCOUNTER 2023-12-03 18:21 | Emergency (ER) | payer SELFPAY ==
[2023-12-03 18:21] VITALS: BP 119/90; PULSE 89; RESP 18; TEMP 36.4; O2SAT 99; BMI 31.6
--- NOTE | 2023-12-03 19:07 | EDS_ITS ---
HPI History of Present Illness Chief Complaint: Lower Extremity Injury Narrative Narrative: 38-year-old female presenting with back pain and leg pain. She states are both new issues. She states she stays at home but she does a lot of housework and this does includes lifting, stooping, kneeling. She states that her lower back has been hurting and she has noticed some radiation of the lower back pain into the hip. She states that she has had some tingling she noted from the hip to the right knee over the last couple of weeks and she saw chiropractor today for this and has a manipulation. She states that usually takes a day or 2 for this to help. She states that her back and hip are not any worse or better than usual. Patient states has been taking aspirin over the last few days because she notes that her right calf is been hurting. She has an area of erythema over the superficial aspect of the lateral calf. She denies history of DVT, recent surgery, bedridden, mobilize, exogenous hormone use, trauma, surgery, history of cancer. Patient states that she does have varicose veins. Patient describes the pain she has in her lower calf is burning. Patient states that after seeing her chiropractor today who recommended coming in for evaluation of a DVT. PFSH PFSH Medical History no medical history Home Medications duloxetine 60 mg capsule,delayed release 60 mg PO DAILY 12/03/23 [History Last Taken Unknown] Allergy/AdvReac Type Severity Reaction Status Date / Time No Known Allergies Allergy Verified 12/03/23 18:21 Surgical History no surgical history Social History Smoking Status: Never smoker [facility] Constitutional Constitutional ED: Denies chills, fever(s) or sweats Eyes Eyes: Denies blurry vision or change in vision ENT ENT ED: Denies ear pain or sore throat Cardiovascular Cardiovascular: Denies chest pain, palpitations or racing heartbeat Respiratory/Chest Respiratory/Chest: Denies cough, dyspnea or sputum Gastrointestinal Gastrointestinal: Denies abdominal pain, constipation, diarrhea, nausea or vomiting Genitourinary Genitourinary ED: Denies dysuria, hematuria or urinary frequency Musculoskeletal Musculoskeletal: Reports back pain and other Details: Right lateral calf pain ; Denies arthralgias, myalgias or neck pain Integumentary Reports rash; Denies abscess or Abrasions Neurologic Neurologic: Denies headache(s), paresthesias or weakness Psychiatric Psychiatric: Denies anxiety, depression, suicidal ideation or suicidal thoughts Endocrine Endocrinology: Denies polydipsia or polyuria EXAM Physical Exam Const Vital Signs: 12/03/23 18:21 12/03/23 20:34 Temperature 97.6 F L 97.9 F Temperature Source Temporal Pulse Rate 89 80 Respiratory Rate 18 15 Blood Pressure 119/90 H 105/76 Blood Pressure Mean 99 85 Pulse Ox 99 95 Oxygen Delivery Method Room Air Positive well nourished General Appearance ED: NAD Resp normal respiratory effort Cardio regular rate and regular rhythm GI non-tender Back/Spine Back/Spine Narrative: No midline lumbar spinal tenderness, deformity, step-off. There is some lateral lumbar paraspinal muscular tenderness on the right. This is also tenderness over the right hip and into the IT band on the right leg. No rashes noted. No bruising. Patient able to sit up from supine to sitting to rolling over without any difficulty or assistance. Extremity Extremity Narrative: Patient is able to flex her right leg and knee up to her chest. She is able to extend and flex her right knee without any difficulty. Over the right lateral calf there is a small area of erythema and a varicosity. There is noted to be varicosities in the distal thigh as well. Compartments are soft on the right lower extremity. No cords palpated. Strength 5/5 throughout. Neurovascular intact. Neuro oriented x3 Sensorium / Orientation: alert Motor Exam: strength 5/5 throughout Psych mental status grossly normal Skin Skin Narrative: As documented above MDM MDM MDM Narrative Medical decision making narrative: Patient presenting with back pain, hip pain, right leg pain. Differential includes lumbar strain, sciatica, piriformis syndrome, superficial thrombophlebitis, DVT. Patient declines analgesia. Will obtain a lumbar spinal x-ray as well as a DVT study of the right lower extremity. X-ray lumbar spine my interpretation is no acute process. Radiology interprets this and agrees. DVT study was performed of the right lower extremity which is negative for DVT. There is no evidence of superficial thrombophlebitis although I am told there is varicosities. Patient was counseled on this. I think she stable for discharge at this time. Recommended Tylenol and ibuprofen for pain. Impression: 1. Right leg pain 2. Lumbar strain Lab Data Attestation: I reviewed the patient's lab results. Radiography Diagnostic Testing: Clinical Impression(s) from Imaging Studies Lumbar Spine X-Ray 12/03/23 19:20 IMPRESSION: Normal x-ray examination of the lumbar spine. Electronically Signed: Ashvin Vergara MD at 19:41 EDT Reading Location ID and State: [address] [place] [address] Tel , Service support , Venous Duplex 12/03/23 19:21 IMPRESSION: Normal venous Doppler ultrasound of the lower extremity. Electronically Signed: Ashvin Vergara MD at 19:55 EDT Reading Location ID and State: [facility] / [place] Tel , Service support , Discharge Plan Triage Chief Complaint: Lower Extremity Injury ED Provider: Fadi Salas Dx/Rx/DC Orders Instructions: Iliotibial Band Friction Syndrome, ED Varicose Veins Prescriptions: No Action duloxetine 60 mg capsule,delayed release(DR/EC) 60 mg PO DAILY Primary Care Provider: Jaylan Hernadez Referrals: Jaylan Hernadez MD [Primary Care Provider] - Disposition Disposition: Home, Self Care Discharge Date/Time: 12/03/23 20:35
--- NOTE | 2023-12-03 19:20 | RAD_ITS ---
STUDY: X-RAY - LUMBAR SPINE REASON FOR EXAM: Female, 38 years old. back pain TECHNIQUE: 3 view(s) of the lumbar spine were obtained. COMPARISON: None FINDINGS: Normal lumbar lordosis. There is no substantial scoliosis. There is a normal alignment of the vertebrae. Normal vertebral bodies and endplates. Normal disc space heights. The soft tissue structures are unremarkable. RAD/Lumbar Spine 2 or 3 Views IMPRESSION: Normal x-ray examination of the lumbar spine. Electronically Signed: Ashvin Vergara MD at 19:41 EDT ,
--- NOTE | 2023-12-03 19:21 | US_ITS ---
STUDY: VENOUS DOPPLER ULTRASOUND - RIGHT LOWER EXTREMITY REASON FOR EXAM: Female, 38 years old. RT LATERAL LEG/HIP PAIN TECHNIQUE: Ultrasound evaluation of the deep vein system to include osuna-scale imaging and compression was performed. Osuna-scale imaging and Doppler sonographic evaluation, including duplex spectral analysis and qualitative color flow sonography, was performed. COMPARISON: None. FINDINGS: Common Femoral Vein: Normal compression, spontaneity and augmentation. Normal color Doppler. Common Femoral Vein/Greater Saphenous Junction: Normal compression, spontaneity and augmentation. Normal color Doppler. Deep Femoral Vein: Normal compression, spontaneity and augmentation. Normal color Doppler. Femoral Proximal: Normal compression, spontaneity and augmentation. Normal color Doppler. Femoral Middle: Normal compression, spontaneity and augmentation. Normal color Doppler. Femoral Distal: Normal compression, spontaneity and augmentation. Normal color Doppler. Popliteal Vein: Normal compression, spontaneity and augmentation. Normal color Doppler. Posterior Tibial Vein: Normal compression, spontaneity and augmentation. Normal color Doppler. Peroneal Vein: Normal compression, spontaneity and augmentation. Normal color Doppler. US/Venous Duplex Imag/Limited/Uni IMPRESSION: Normal venous Doppler ultrasound of the lower extremity. Electronically Signed: Ashvin Vergara MD at 19:55 EDT ,
[2023-12-03 20:34] VITALS: BP 105/76; PULSE 80; RESP 15; TEMP 36.6; O2SAT 95
== END 2023-12-03 20:35 | disposition home or self-care (01) ==
PROVIDERS: Emergency Provider Student in an Organized Health Care Education/Training Program; PCP Family Medicine; Visit Provider Student in an Organized Health Care Education/Training Program
DX: S39.012A Strain of muscle, fascia and tendon of lower back, initial encounter (principal); M79.604 Pain in right leg; X58.XXXA Exposure to other specified factors, initial encounter; Y93.89 Activity, other specified
CPT/HCPCS: 72100; 93971; 99282